=== PATIENT | female | born 1965 | race Caucasian/White ===

== ENCOUNTER 2016-11-18 14:43 | Emergency (ER) | payer OTHER ==
[~2016-11-18] VITALS: Ht 172.7 cm; Wt 90.7 kg
[~2016-11-18 14:43] MED LIST: ATARAX25 MG PO; BACTRIM DS 8001 TA1 PO; BIAXIN500 MG PO; CIPROFLOXACIN500 MG PO; CLEOCIN150 MG PO; CLINDAMYCIN HC300 MG PO; DAYPRO600 M1 PO; DOXYCYCLINE HY100 M3 PO; FLEXERIL5 MG PO; FLONASE ALLERG9.9 ML NS; HYDROCODONE BIT1 T11 PO; NAPROSYN500 MG PO; NORCO 325 MG-51 TAB PO; NORFLEX100 MG PO; PARAFON FORTE500 MG PO; PREDNICOT20 MG PO; PREDNISONE10 MG PO; Peridex 473 ML473 ML PO; ROBITUSSIN AC 110 ML PO; TAMIFLU75 MG PO; TRAMADOL HCL50 MG PO; ULTRAM50 MG PO; VIBRAMYCIN100 MG PO; VICODIN ES 7501 TAB PO; ZITHROMAX250 MG PO; ZYRTEC10 MG PO
[2016-11-18] MEDS ORDERED: AUGMENTIN 875875 MG PO (15:30)
== END 2016-11-18 15:39 | disposition home or self-care (01) ==
LOC: ED 14:43
DX: H66.003 Acute suppurative otitis media without spontaneous rupture of ear drum, bilateral (principal); F17.200 Nicotine dependence, unspecified, uncomplicated; Z88.8 Allergy status to other drugs, medicaments and biological substances

== ENCOUNTER 2017-05-09 15:39 | Emergency (ER) | payer OTHER ==
[~2017-05-09] VITALS: Ht 172.7 cm; Wt 90.7 kg
[~2017-05-09 15:39] MED LIST changes: +AUGMENTIN 875875 MG PO
[2017-05-09] MEDS ORDERED: NAPROSYN500 MG PO (19:03)
[2017-05-09] MEDS ORDERED: AMOXICILLIN500 M2 PO (19:03)
[2017-05-09] MEDS ORDERED: HYDROCODONE BIT1 T11 PO (19:03)
== END 2017-05-09 19:06 | disposition home or self-care (01) ==
LOC: ED 15:39
DX: S39.012A Strain of muscle, fascia and tendon of lower back, initial encounter (principal); H66.91 Otitis media, unspecified, right ear; Z88.1 Allergy status to other antibiotic agents; X50.9XXA Other and unspecified overexertion or strenuous movements or postures, initial encounter; Y93.89 Activity, other specified; Y92.9 Unspecified place or not applicable; Y99.9 Unspecified external cause status

== ENCOUNTER 2017-12-10 18:26 | Emergency (ER) | payer OTHER ==
[~2017-12-10] VITALS: Ht 172.7 cm; Wt 90.7 kg
[~2017-12-10 18:26] MED LIST changes: +AMOXICILLIN500 M2 PO
[2017-12-10] MEDS ORDERED: ZITHROMAX250 MG PO (20:36)
== END 2017-12-10 21:55 | disposition home or self-care (01) ==
LOC: ED 18:26
DX: J20.9 Acute bronchitis, unspecified (principal); J01.90 Acute sinusitis, unspecified; Z88.8 Allergy status to other drugs, medicaments and biological substances; Z79.899 Other long term (current) drug therapy

== ENCOUNTER 2017-12-27 13:11 | Emergency (ER) | payer OTHER ==
[~2017-12-27] VITALS: Ht 172.7 cm; Wt 90.7 kg
[2017-12-27] MEDS ORDERED: CLARITIN10 MG PO (13:26)
[2017-12-27] MEDS ORDERED: FLONASE ALLERG9.9 ML NAS (13:26)
[2017-12-27] MEDS ORDERED: PREDNISONE10 MG PO (13:26)
[2017-12-27] MEDS ORDERED: ROBITUSSIN DM 105 ML PO (13:26)
== END 2017-12-27 14:16 | disposition home or self-care (01) ==
LOC: ED 13:11
DX: J20.9 Acute bronchitis, unspecified (principal); F10.10 Alcohol abuse, uncomplicated; Z88.8 Allergy status to other drugs, medicaments and biological substances; Z79.899 Other long term (current) drug therapy

== ENCOUNTER → 2018-02-02 | Outpatient (CLI) | payer OTHER ==
[~2018-02-02] MED LIST changes: +CLARITIN10 MG PO; +FLONASE ALLERG9.9 ML NAS; +ROBITUSSIN DM 105 ML PO
== END | disposition home or self-care (01) ==
LOC: RESCLI 00:34
DX: Z13.820 Encounter for screening for osteoporosis (principal); M54.5 Low back pain; G89.29 Other chronic pain; K21.9 Gastro-esophageal reflux disease without esophagitis; E66.09 Other obesity due to excess calories; Z86.31 Personal history of diabetic foot ulcer; Z87.891 Personal history of nicotine dependence

== ENCOUNTER → 2018-02-10 | Outpatient (CLI) | payer OTHER ==
[2018-02-10 16:51] LABS: BASO # 0.1 10*3/uL (0.0-0.1); EOS # 0.2 10*3/uL (0.0-0.4); EOS % 3.7 % (1.0-4.0); HEMATOCRIT 38.2 % (37.0-47.0); HEMOGLOBIN 12.4 g/dl (12.0-16.0); LYMPH # 2.5 10*3/uL (1.3-4.4); LYMPH % 41.1 % (27.0-41.0); MEAN CELL VOLUME 94.3 fl (81.0-99.0); MEAN CORPUSCULAR HGB 30.6 pg (27.0-31.0); MEAN CORPUSCULAR HGB CONC 32.5 g/dl (33.0-37.0); MEAN PLATELET VOLUME 11.3 fl (9.6-12.3); MONO # 0.5 10*3/uL (0.1-1.0); NEUT # 2.7 10*3/uL (2.3-7.9); NEUT % 44.9 % (47.0-73.0); PLATELET COUNT AUTOMATED 236 10*3/uL (130-400); RED BLOOD COUNT 4.05 10*6/uL (4.10-5.10); RED CELL DISTRI WIDTH 13.6 % (0-14.5)
[2018-02-10 17:07] LABS: ALBUMIN 3.9 gm/dl (3.1-4.5); CREATININE 1.16 mg/dL (0.55-1.02); TOTAL PROTEIN 7.3 gm/dL (6.4-8.2)
[2018-02-10 17:19] LABS: VITAMIN D, 25-HYDROXY 14.1 ng/mL (30-100)
== END | disposition home or self-care (01) ==
LOC: RAD 02-06 02:57 → LAB 16:05
PROVIDERS: Internal Medicine Nephrology
DX: K21.9 Gastro-esophageal reflux disease without esophagitis (principal); R79.89 Other specified abnormal findings of blood chemistry

== ENCOUNTER → 2018-02-18 | Outpatient (CLI) | payer OTHER | END | disposition home or self-care (01) | LOC: RAD 02-06 11:30 | DX: Z13.820 Encounter for screening for osteoporosis (principal) ==

== ENCOUNTER → 2018-05-07 | Outpatient (CLI) | payer OTHER | END | disposition home or self-care (01) | LOC: RESCLI 07:48 | DX: Z12.31 Encounter for screening mammogram for malignant neoplasm of breast (principal); Z12.11 Encounter for screening for malignant neoplasm of colon; K21.9 Gastro-esophageal reflux disease without esophagitis; E66.09 Other obesity due to excess calories; M54.5 Low back pain; G89.29 Other chronic pain; E55.9 Vitamin D deficiency, unspecified; M85.80 Other specified disorders of bone density and structure, unspecified site; R51 Headache; F32.1 Major depressive disorder, single episode, moderate; J30.2 Other seasonal allergic rhinitis; Z82.49 Family history of ischemic heart disease and other diseases of the circulatory system; Z79.899 Other long term (current) drug therapy; Z72.0 Tobacco use; Z88.8 Allergy status to other drugs, medicaments and biological substances ==

== ENCOUNTER → 2018-11-05 | Outpatient (CLI) | payer OTHER ==
[~2018-11-05] MED LIST changes: +AVPAK AZITHROM250 M1 PO; +PANTOPRAZOLE SO40 MG PO; +TOPCARE OMEPRAZ20 MG PO
== END | disposition home or self-care (01) ==
LOC: RESCLI 02:37
DX: Z09 Encounter for follow-up examination after completed treatment for conditions other than malignant neoplasm (principal); E66.9 Obesity, unspecified; J01.10 Acute frontal sinusitis, unspecified; R00.2 Palpitations; K21.9 Gastro-esophageal reflux disease without esophagitis; J30.2 Other seasonal allergic rhinitis; E55.9 Vitamin D deficiency, unspecified; R07.89 Other chest pain; Z88.8 Allergy status to other drugs, medicaments and biological substances; Z90.49 Acquired absence of other specified parts of digestive tract; Z87.891 Personal history of nicotine dependence

== ENCOUNTER 2019-03-09 09:15 | Emergency (ER) | payer OTHER ==
[~2019-03-09] VITALS: Ht 172.7 cm; Wt 93.0 kg
[2019-04-30] MEDS ORDERED: CLINDAMYCIN HC300 MG PO (15:53)
[2019-04-30] MEDS ORDERED: NAPROSYN500 MG PO (15:53)
== END 2019-03-09 12:07 | disposition home or self-care (01) ==
LOC: ED 09:15
DX: R07.81 Pleurodynia (principal); Z87.891 Personal history of nicotine dependence; Z88.1 Allergy status to other antibiotic agents

== ENCOUNTER → 2019-04-27 | Outpatient (CLI) | payer OTHER | END | disposition home or self-care (01) | LOC: RESCLI 00:14 | DX: E66.9 Obesity, unspecified (principal); E55.9 Vitamin D deficiency, unspecified; K21.9 Gastro-esophageal reflux disease without esophagitis; G25.81 Restless legs syndrome; J30.2 Other seasonal allergic rhinitis; Z76.89 Persons encountering health services in other specified circumstances; Z79.899 Other long term (current) drug therapy; Z88.8 Allergy status to other drugs, medicaments and biological substances ==

== ENCOUNTER 2019-07-18 19:04 | Emergency (ER) | payer OTHER ==
[~2019-07-18] VITALS: Ht 172.7 cm; Wt 95.3 kg
[2019-07-18] MEDS ORDERED: CLEOCIN HCL300 MG PO (19:36)
[2019-07-18] MEDS ORDERED: GABAPENTIN100 M2 PO (19:37)
[2019-07-18 19:48] LABS: BASO # 0.1 10*3/uL (0.0-0.1); BASO % 1.1 % (0.0-1.0); EOS # 0.3 10*3/uL (0.0-0.4); EOS % 4.1 % (1.0-4.0); LYMPH # 2.4 10*3/uL (1.3-4.4); LYMPH % 33.5 % (27.0-41.0); MEAN CORPUSCULAR HGB 30.7 pg (27.0-31.0); MEAN CORPUSCULAR HGB CONC 33.3 g/dl (33.0-37.0); MEAN PLATELET VOLUME 10.8 fl (9.6-12.3); MONO # 0.7 10*3/uL (0.1-1.0); MONO % 10.2 % (3.0-9.0); NEUT # 3.6 10*3/uL (2.3-7.9); NEUT % 50.8 % (47.0-73.0); PLATELET COUNT AUTOMATED 230 10*3/uL (130-400); RED BLOOD COUNT 4.24 10*6/uL (4.10-5.10); RED CELL DISTRI WIDTH 13.8 % (0-14.5); WHITE BLOOD COUNT 7.1 10*3/uL (4.8-10.8)
[2019-07-18 20:03] LABS: ALBUMIN 3.7 gm/dl (3.1-4.5); ALKALINE PHOSPHATASE 94 U/L (45-117); BUN 10 mg/dl (7-24); CHLORIDE 107 mmol/L (98-107); CREATININE 1.09 mg/dL (0.55-1.02); POTASSIUM 3.7 mmol/L (3.5-5.1); SGOT/AST 10 IU/L (3-35); SGPT/ALT 17 U/L (12-78); SODIUM 141 mmol/L (136-145); TOTAL PROTEIN 7.3 gm/dL (6.4-8.2)
[2019-07-18] MEDS ORDERED: AUGMENTIN 875-875 MG PO (21:24)
[2019-07-18] MEDS ORDERED: ROBITUSSIN DM 101 OZ PO (21:24)
[2019-07-18] MEDS ORDERED: PREDNISONE20 M1 PO (21:24)
[2019-07-18] MEDS ORDERED: FLONASE ALLERG9.9 ML NAS (21:24)
== END 2019-07-18 21:45 | disposition home or self-care (01) ==
LOC: ED 19:04
PROVIDERS: Nurse Practitioner Family
DX: J01.90 Acute sinusitis, unspecified (principal); K21.9 Gastro-esophageal reflux disease without esophagitis; Z88.1 Allergy status to other antibiotic agents; Z79.2 Long term (current) use of antibiotics; Z87.891 Personal history of nicotine dependence

== ENCOUNTER 2020-01-09 15:51 | Emergency (ER) | payer OTHER ==
[~2020-01-09] VITALS: Ht 172.7 cm; Wt 90.7 kg
[~2020-01-09 15:51] MED LIST changes: +AUGMENTIN 875-875 MG PO; +CLEOCIN HCL300 MG PO; +GABAPENTIN100 M2 PO; +PREDNISONE20 M1 PO; +ROBITUSSIN DM 101 OZ PO
[2020-01-09] MEDS ORDERED: NAPROSYN500 MG PO (16:45)
[2020-01-09] MEDS ORDERED: CLINDAMYCIN HC300 MG PO (16:45)
== END 2020-01-09 16:57 | disposition home or self-care (01) ==
LOC: ED 15:51
DX: K08.89 Other specified disorders of teeth and supporting structures (principal); J06.9 Acute upper respiratory infection, unspecified; K03.81 Cracked tooth; F17.200 Nicotine dependence, unspecified, uncomplicated; Z88.8 Allergy status to other drugs, medicaments and biological substances; Z79.2 Long term (current) use of antibiotics; Z79.899 Other long term (current) drug therapy

== ENCOUNTER → 2020-04-04 | Outpatient (CLI) | payer OTHER | END | disposition home or self-care (01) | LOC: RAD 10:11 | DX: M47.812 Spondylosis without myelopathy or radiculopathy, cervical region (principal); M48.02 Spinal stenosis, cervical region; M46.02 Spinal enthesopathy, cervical region ==

== ENCOUNTER 2020-05-10 10:54 | Emergency (ER) | payer OTHER ==
[~2020-05-10] VITALS: Ht 172.7 cm; Wt 96.2 kg
[2020-05-10] MEDS ORDERED: NAPROSYN500 MG PO (11:40)
[2020-05-10] MEDS ORDERED: AMOXICILLIN500 M2 PO (11:40)
== END 2020-05-10 11:47 | disposition home or self-care (01) ==
LOC: ED 10:54
DX: K08.89 Other specified disorders of teeth and supporting structures (principal); Z88.1 Allergy status to other antibiotic agents; Z87.891 Personal history of nicotine dependence

== ENCOUNTER 2021-05-21 11:33 | Emergency (ER) | payer OTHER ==
[~2021-05-21] VITALS: Ht 172.7 cm; Wt 90.7 kg
[2021-05-21 12:25] LABS: BILIRUBIN Negative (Negative); BLOOD Negative (Negative); CLARITY Clear (Clear); COLOR Yellow (Yellow); GLUCOSE Negative (Negative); KETONE Negative (Negative); LEUKO ESTERASE Negative (Negative); NITRITE Negative (Negative); PH 6.5 (4.5-8.0)
[2021-05-21 12:43] LABS: BACTERIA TRACE; RBC 0-2 rbc/hpf (0-2); WBC 0-2 wbc/hpf (0-5)
[2021-05-21 13:04] LABS: BASO # 0.1 10*3/uL (0.0-0.1); BASO % 0.9 % (0.0-1.0); EOS # 0.5 10*3/uL (0.0-0.4); EOS % 8.4 % (1.0-4.0); HEMATOCRIT 38.7 % (37.0-47.0); LYMPH # 1.9 10*3/uL (1.3-4.4); MEAN CELL VOLUME 90.4 fl (81.0-99.0); MEAN CORPUSCULAR HGB 29.2 pg (27.0-31.0); MEAN CORPUSCULAR HGB CONC 32.3 g/dl (33.0-37.0); MONO # 0.5 10*3/uL (0.1-1.0); MONO % 8.9 % (3.0-9.0); NEUT # 2.7 10*3/uL (2.3-7.9); NEUT % 47.6 % (47.0-73.0); PLATELET COUNT AUTOMATED 235 10*3/uL (130-400); RED BLOOD COUNT 4.28 10*6/uL (4.10-5.10); RED CELL DISTRI WIDTH 14.5 % (0-14.5); WHITE BLOOD COUNT 5.6 10*3/uL (4.8-10.8)
[2021-05-21 13:18] LABS: ALBUMIN 3.6 gm/dl (3.1-4.5); ALKALINE PHOSPHATASE 104 U/L (45-117); BUN 11 mg/dl (7-24); CHLORIDE 113 mmol/L (98-107); CREATININE 0.84 mg/dL (0.55-1.02); LIPASE 189 U/L (73-393); POTASSIUM 4.1 mmol/L (3.5-5.1); SGOT/AST 13 IU/L (3-35); SGPT/ALT 17 U/L (12-78); SODIUM 141 mmol/L (136-145)
== END 2021-05-21 15:30 | disposition home or self-care (01) ==
LOC: ED 11:33
PROVIDERS: Emergency Medicine
DX: R30.0 Dysuria (principal); R10.32 Left lower quadrant pain; K21.9 Gastro-esophageal reflux disease without esophagitis; Z88.1 Allergy status to other antibiotic agents; Z79.2 Long term (current) use of antibiotics; Z79.899 Other long term (current) drug therapy

== ENCOUNTER → 2022-06-03 | Outpatient (CLI) | payer OTHER | END | disposition home or self-care (01) | LOC: RAD 16:15 | PROVIDERS: ATTEND Podiatrist Foot & Ankle Surgery | DX: M21.6X1 Other acquired deformities of right foot (principal); M77.31 Calcaneal spur, right foot ==

== ENCOUNTER 2023-02-03 07:59 | Emergency (ER) | payer OTHER ==
[~2023-02-03] VITALS: Ht 172.7 cm; Wt 101.6 kg
[2023-02-03] MEDS ORDERED: VIBRA-TAB100 MG PO (08:51)
[2023-02-03] MEDS ORDERED: GENTACIDIN5 ML NAS (08:51)
== END 2023-02-03 09:00 | disposition home or self-care (01) ==
LOC: ED 07:59
DX: J32.9 Chronic sinusitis, unspecified (principal); H10.33 Unspecified acute conjunctivitis, bilateral; Z88.8 Allergy status to other drugs, medicaments and biological substances; Z98.890 Other specified postprocedural states; Z90.89 Acquired absence of other organs; Z87.891 Personal history of nicotine dependence

== ENCOUNTER 2023-04-15 12:11 | Emergency (ER) | payer OTHER ==
[~2023-04-15] VITALS: Wt 101.2 kg
[~2023-04-15 12:11] MED LIST changes: +GENTACIDIN5 ML NAS; +VIBRA-TAB100 MG PO
[2023-04-15 13:20] LABS: BILIRUBIN Negative (Negative); BLOOD Negative (Negative); CLARITY Clear (Clear); COLOR Dark Yellow (Yellow); GLUCOSE Negative (Negative); KETONE Trace (Negative); LEUKO ESTERASE Trace (Negative); NITRITE Negative (Negative); PH 5.5 (4.5-8.0); SPECIFIC GRAVITY >= 1.030 (1.001-1.030)
[2023-04-15 13:32] LABS: BACTERIA TRACE
[2023-04-15] MEDS ORDERED: FLONASE ALLERG9.9 ML NS (13:41)
[2023-04-15] MEDS ORDERED: AMOX-CLAV 875-1 EACH PO (13:41)
== END 2023-04-15 14:07 | disposition home or self-care (01) ==
LOC: ED 12:11
PROVIDERS: Physician Assistant
DX: J32.9 Chronic sinusitis, unspecified (principal); N39.0 Urinary tract infection, site not specified; J02.9 Acute pharyngitis, unspecified; K21.9 Gastro-esophageal reflux disease without esophagitis; Z88.1 Allergy status to other antibiotic agents; Z79.899 Other long term (current) drug therapy; Z79.2 Long term (current) use of antibiotics; Z87.891 Personal history of nicotine dependence

== ENCOUNTER 2023-07-10 12:22 | Emergency (ER) | payer OTHER ==
[~2023-07-10] VITALS: Ht 172.7 cm; Wt 97.5 kg
== END 2023-07-10 15:20 | disposition left against medical advice (07) ==
LOC: ED 12:22
DX: R09.81 Nasal congestion (principal); J00 Acute nasopharyngitis [common cold]; Z88.8 Allergy status to other drugs, medicaments and biological substances; Z53.21 Procedure and treatment not carried out due to patient leaving prior to being seen by health care provider

== ENCOUNTER → 2023-07-10 | Outpatient (CLI) | payer OTHER ==
[~2023-07-10] MED LIST changes: +AMOX-CLAV 875-1 EACH PO
== END | disposition home or self-care (01) ==
LOC: RAD 15:29
PROVIDERS: ATTEND Nurse Practitioner Family
DX: J02.9 Acute pharyngitis, unspecified (principal); R09.81 Nasal congestion; R53.83 Other fatigue; R05.8 Other specified cough

== ENCOUNTER 2023-08-29 12:33 | Emergency (ER) | payer OTHER ==
[~2023-08-29] VITALS: Ht 172.7 cm; Wt 90.7 kg
== END 2023-08-29 15:13 | disposition home or self-care (01) ==
LOC: ED 12:33
DX: M25.562 Pain in left knee (principal); K21.9 Gastro-esophageal reflux disease without esophagitis; Y93.89 Activity, other specified; Z88.1 Allergy status to other antibiotic agents; Z79.899 Other long term (current) drug therapy; Z79.2 Long term (current) use of antibiotics; Z87.891 Personal history of nicotine dependence; X50.0XXA Overexertion from strenuous movement or load, initial encounter; Y92.89 Other specified places as the place of occurrence of the external cause; Y99.8 Other external cause status

== ENCOUNTER 2024-02-22 10:33 | Emergency (ER) | payer OTHER ==
[~2024-02-22] VITALS: Ht 172.7 cm; Wt 90.7 kg
[2024-02-22] MEDS ORDERED: Acetaminophen/Oxycodone 5 MG/325 MG TABLET PO ONE (11:15)
[2024-02-22] MEDS ORDERED: PERCOCET 5-3251 EACH PO (11:24)
== END 2024-02-22 11:40 | disposition home or self-care (01) ==
LOC: ED 10:33
DX: S22.42XA Multiple fractures of ribs, left side, initial encounter for closed fracture (principal); Z88.8 Allergy status to other drugs, medicaments and biological substances; Z98.890 Other specified postprocedural states; Z90.89 Acquired absence of other organs; Z87.891 Personal history of nicotine dependence; W10.9XXA Fall (on) (from) unspecified stairs and steps, initial encounter; Y93.89 Activity, other specified; Y92.89 Other specified places as the place of occurrence of the external cause; Y99.8 Other external cause status

== ENCOUNTER 2024-11-08 16:08 | Emergency (ER) | payer OTHER ==
[~2024-11-08 16:08] MED LIST changes: +PERCOCET 5-3251 EACH PO
[2024-11-08] MEDS ORDERED: IBU600 M1 PO (16:39)
[2024-11-08] MEDS ORDERED: NEURONTIN300 MG PO (16:39)
[2024-11-08] MEDS ORDERED: PENICILLIN VK500 MG PO (17:14)
[2024-11-08] MEDS ORDERED: NAPROSYN500 MG PO (17:14)
[2024-11-08] MEDS ORDERED: Acetaminophen/Oxycodone 5 MG/325 MG TABLET PO ONE (17:20)
[2024-11-08] MEDS ORDERED: Ketorolac Tromethamine 60 MG/2 ML VIAL IM ONE (17:20)
[2024-11-08] MEDS ORDERED: PENICILLIN V POTASSIUM 500 MG TAB PO ONE (17:20)
== END 2024-11-08 17:25 | disposition home or self-care (01) ==
LOC: ED 16:08
DX: S02.5XXA Fracture of tooth (traumatic), initial encounter for closed fracture (principal); K04.7 Periapical abscess without sinus; K21.9 Gastro-esophageal reflux disease without esophagitis; E78.00 Pure hypercholesterolemia, unspecified; E83.41 Hypermagnesemia; I10 Essential (primary) hypertension; Z88.8 Allergy status to other drugs, medicaments and biological substances; Z98.890 Other specified postprocedural states; Z90.89 Acquired absence of other organs; Z87.891 Personal history of nicotine dependence; X58.XXXA Exposure to other specified factors, initial encounter; Y93.89 Activity, other specified; Y92.89 Other specified places as the place of occurrence of the external cause; Y99.8 Other external cause status

== ENCOUNTER → 2025-02-23 | Outpatient (CLI) | payer OTHER ==
[~2025-02-23] MED LIST changes: +IBU600 M1 PO; +NEURONTIN300 MG PO; +PENICILLIN VK500 MG PO
== END | disposition home or self-care (01) ==
LOC: CARD 00:30
PROVIDERS: ATTEND Internal Medicine Cardiovascular Disease
DX: R94.31 Abnormal electrocardiogram [ECG] [EKG] (principal); R06.09 Other forms of dyspnea